=== PATIENT | male | born 1990 | race Caucasian/White ===

== ENCOUNTER 2017-06-09 04:10 | Emergency (ER) | payer MEDICAID, OTHER ==
[~2017-06-09] VITALS: Ht 185.4 cm; Wt 72.6 kg
[2017-06-09] MEDS ORDERED: SODIUM CHLORIDE 0.9% 1,000 ML IV ONE (05:00)
[2017-06-09] MEDS ORDERED: ONDANSETRON HCL 4 MG/2 ML VIAL IV ONE (05:00)
[2017-06-09 05:27] VITALS: BP 134/79
== END 2017-06-09 07:41 | disposition left against medical advice (07) ==
LOC: ER 04:10
DX: S09.8XXA Other specified injuries of head, initial encounter (principal); R11.0 Nausea; W22.8XXA Striking against or struck by other objects, initial encounter; Y93.89 Activity, other specified; Y92.89 Other specified places as the place of occurrence of the external cause; Y99.2 Volunteer activity
CPT/HCPCS: 70450; J7030

== ENCOUNTER → 2018-01-10 | Outpatient (CLI) | payer OTHER | END | disposition home or self-care (01) | LOC: LAB 15:24 | PROVIDERS: ATTEND Preventive Medicine Preventive Medicine/Occupational Environmental Medicine | DX: Z02.1 Encounter for pre-employment examination (principal) | CPT/HCPCS: 36415; 86706; 86735; 86762; 86765; 86787 ==

== ENCOUNTER 2019-02-06 20:24 | Inpatient (IN) | payer BC, OTHER ==
[~2019-02-06] VITALS: Ht 177.8 cm; Wt 74.0 kg
[2019-02-06] MEDS ORDERED: SODIUM CHLORIDE 0.9% 1,000 ML IV ONE (20:45)
[2019-02-06 21:21] LABS: Basophils # (auto) 0 uL; Eosinophils # (auto) 0 uL; Hematocrit 55.8 % (41.0-53.0); Hemoglobin 18.6 g/dL (13.5-17.5); Lymphocytes # (auto) 0.4 uL; Mean Corpuscular Hgb Conc. 33.4 g/dL (32.0-36.0)
[2019-02-06 21:22] LABS: Lymphocytes % (auto) 1.6 % (10.0-50.0); Mean Corpuscular Hemoglobin 33.7 pg (28.0-32.0); Mean Corpuscular Volume 100.9 fL (80.0-100.0); Monocytes # (auto) 1.7 uL; Monocytes % (auto) 6.8 % (0.0-12.0); Neutrophils # (auto) 23.1 uL; Neutrophils % (auto) 91.6 % (37.0-80.0); Platelet Count (auto) 204 10^3/uL (140-450); Red Blood Cells 5.53 10^6/uL (4.5-5.90); Red Cell Distribution Width 13.1 % (11.8-14.3); White Blood Cell 25.2 10^3/uL (4.4-10.8)
[2019-02-06 21:29] LABS: Salicylate < 1.7 mg/dL (2.8-20.0)
[2019-02-06 21:31] LABS: Albumin 4.7 g/dL (3.4-5.0); Calcium 8.6 mg/dL (8.5-10.1); Magnesium 2.6 mg/dL (1.6-2.6); Potassium 4.2 mmol/L (3.5-5.1)
[2019-02-06 21:33] LABS: Acetaminophen < 2.0 ug/mL (10-30)
[2019-02-06 21:36] LABS: BUN/Creatinine Ratio 7.2; Bilirubin, Total 2.4 mg/dL (0.2-1.0); Total Protein 8.5 g/dL (6.4-8.2)
[2019-02-06] MEDS ORDERED: SOD CHL 0.45% 1,000 ML IV ONE (23:30)
[2019-02-07 00:19] LABS: Amphetamine Screen, Urine NEGATIVE (NEGATIVE); Barbiturate Scree,Urine NEGATIVE (NEGATIVE); Benzodiazephine Screen, Urine NEGATIVE (NEGATIVE); Cannabinoid Screen, Urine NEGATIVE (NEGATIVE); Cocaine Screen, Urine NEGATIVE (NEGATIVE); Opiate Scree,Urine NEGATIVE (NEGATIVE); Phencyclidine Screen, Urine NEGATIVE (NEGATIVE)
[2019-02-07 00:27] LABS: Lactic Acid w/Reflex 7.8 mmol/L (0.4-2.0)
[2019-02-07 00:44] LABS: Urine Bacteria FEW /hpf (None Seen); Urine Blood TRACE /uL (Negative); Urine Hyaline Cast FEW /lpf (0 - 2); Urine Mucus FEW (None Seen); Urine Specific Gravity 1.008 (1.001-1.035); Urine WBC 1 /hpf (0 - 3)
[2019-02-07] MEDS ORDERED: cefTRIAXone 1GM/50ML D5W 50 ML IV ONE (02:00)
[2019-02-07] MEDS ORDERED: FOLIC ACID 1 MG, MULTIPLE VITAMIN 10 ML, THIAMINE INJ 100 MG in D5W/SOD CHL 0.45% 1,000 ML INJ ONE (02:00)
[2019-02-07 02:06] LABS: Lactic Acid w/Reflex 6.2 mmol/L (0.4-2.0)
[2019-02-07 02:51] LABS: BUN/Creatinine Ratio 9.8; Calcium 8.1 mg/dL (8.5-10.1); Potassium 4.4 mmol/L (3.5-5.1)
[2019-02-07] MEDS ORDERED: MORPHINE SULF INJ 2 MG/ML SYRINGE 1ML IV PRN (03:00)
[2019-02-07] MEDS ORDERED: ONDANSETRON HCL 4 MG/2 ML VIAL IV PRN ×2 (03:00→03:45)
[2019-02-07] MEDS ORDERED: KETOROLAC TROMETH 30 MG/ML 1ML VIAL IV ONE ×2 (03:00→04:00)
[2019-02-07] MEDS ORDERED: PANTOPRAZOLE 40 MG TAB PO ONE (03:45)
[2019-02-07] MEDS ORDERED: SODIUM CHLORIDE 0.9% 1,000 ML IV ONE ×2 (03:45→04:00)
[2019-02-07] MEDS ORDERED: TEMAZEPAM 15 MG CAP PO PRN (03:45)
[2019-02-07] MEDS ORDERED: SODIUM CHLORIDE 0.9% 1,000 ML IV SCH ×2 (03:45→15:44)
[2019-02-07] MEDS ORDERED: LORazepam 0.5 MG TAB PO ONE (04:00)
[2019-02-07] MEDS ORDERED: D5W/SOD CHLO 0.9% 1,000 ML IV SCH (04:00)
[2019-02-07] MEDS ORDERED: ATORVASTATIN 20 MG TAB PO ONE (04:00)
[2019-02-07 04:42] LABS: INR 0.98 (0.9-1.15); Partial Thromboplastin Time 26.2 sec (23.64-32.05)
[2019-02-07] MEDS ORDERED: NAPROXEN 500 MG TAB PO SCH ×2 (06:00→14:00)
[2019-02-07] MEDS: LORazepam 0.5 MG TAB PO PRN ×2 (08:37→21:46)
[2019-02-07] MEDS: NITROGLYCERIN 0.4 MG SL TAB SL PRN ×3 (08:38→10:06)
[2019-02-07] MEDS ORDERED: PANTOPRAZOLE 40 MG TAB PO SCH (10:00)
[2019-02-07] MEDS ORDERED: PANTOPRAZOLE 40 MG/10 ML VIAL INJ IV SCH (10:00)
[2019-02-07 10:18] LABS: Basophils # (auto) 0 uL; Eosinophils # (auto) 0 uL; Hemoglobin 15.4 g/dL (13.5-17.5); Monocytes # (auto) 1.1 uL; Platelet Count (auto) 123 10^3/uL (140-450)
[2019-02-07 10:20] LABS: Basophils % (auto) 0.2 % (0.0-2.0); Hematocrit 43.6 % (41.0-53.0); Lymphocytes % (auto) 8.9 % (10.0-50.0); Mean Corpuscular Hgb Conc. 35.3 g/dL (32.0-36.0); Mean Corpuscular Volume 96.4 fL (80.0-100.0); Neutrophils # (auto) 9.3 uL; Neutrophils % (auto) 80.9 % (37.0-80.0); Nucleated Red Blood Cells % 0.1 %; Red Blood Cells 4.53 10^6/uL (4.5-5.90); Red Cell Distribution Width 12.3 % (11.8-14.3); White Blood Cell 11.4 10^3/uL (4.4-10.8)
[2019-02-07] MEDS: SODIUM BICARBONATE 50ML VIAL 75 ML in D5W 5% 1,000 ML IV SCH ×2 (10:49→18:36)
[2019-02-07] MEDS: ASPirin 81 mg TAB PO SCH (11:49)
[2019-02-07] MEDS ORDERED: FOLIC ACID 1 MG, MULTIPLE VITAMIN 10 ML, THIAMINE INJ 100 MG in D5W/SOD CHL 0.45% 1,000 ML INJ SCH (12:00)
[2019-02-07] MEDS: chlordiazePOXIDE HCL 25 MG CAP PO PRN ×2 (14:03→23:26)
[2019-02-07] MEDS: CLINDAMYCIN 600MG IV 50 ML IV SCH ×2 (14:04→22:31)
[2019-02-07] MEDS ORDERED: METOPROLOL TARTRATE 25 MG TAB PO ONE (14:15)
[2019-02-07 15:34] LABS: Protein, Urine 60.7 mg/dL (0.0-11.9)
[2019-02-07] MEDS ORDERED: cefTRIAXone 1GM/50ML D5W 50 ML IV SCH (21:00)
[2019-02-07] MEDS ORDERED: ATORVASTATIN 20 MG TAB PO SCH (22:00)
[2019-02-07] MEDS: METOPROLOL TARTRATE 25 MG TAB PO SCH (22:31)
[2019-02-07] MEDS: PANTOPRAZOLE 40 MG TAB PO SCH (22:32)
[2019-02-08 01:00] VITALS: BP 126/79
--- NOTE | 2019-02-08 01:00 | NUR ---
Admit to [facility] SHAYLEE LOPEZ admitted to [facility] via gurney on phototypesetting equipment monitor. Patient transferred to bed, connected to unit monitoring and oxygen, and weighed by bedscale. Patient oriented to Lolis Dubois, primary RN, unit, room, bed, and unit policies regarding patient care and visiting hours. All questions and concerns addressed, patient verbalized understanding. Pt very embarrassed over being put in green gown in ER. Seems very upset and suspicious with feelings of being judged by staff. Assured pt that he was not being judged. Pt does not want visitors except [facility] contact centre supervisor Mikie. No signs of pain at this time. Blisters noted on right calf and right elbow. Will continue to monitor.
--- NOTE | 2019-02-08 01:00 | NUR ---
In pt's belongings was a bottle of Vodka that was half full. Bottle was given to RN before belongings were taken into room. Lolis AGUILAR poured out bottle with Fei AGUILAR as a witness.
[2019-02-08] MEDS: SODIUM BICARBONATE 50ML VIAL 75 ML in D5W 5% 1,000 ML IV SCH (03:12)
[2019-02-08 03:58] VITALS: BP 135/81
[2019-02-08 05:48] LABS: Basophils # (auto) 0 uL; Eosinophils # (auto) 0 uL; Lymphocytes # (auto) 1.2 uL; Monocytes # (auto) 0.6 uL; White Blood Cell 6.9 10^3/uL (4.4-10.8)
[2019-02-08 05:52] LABS: Basophils % (auto) 0.2 % (0.0-2.0); Eosinophils % (auto) 0.2 % (0.0-7.0); Hematocrit 42.3 % (41.0-53.0); Lymphocytes % (auto) 17.5 % (10.0-50.0); Mean Corpuscular Hemoglobin 34.5 pg (28.0-32.0); Mean Corpuscular Hgb Conc. 35.5 g/dL (32.0-36.0); Mean Corpuscular Volume 97.1 fL (80.0-100.0); Monocytes % (auto) 8.8 % (0.0-12.0); Neutrophils # (auto) 5.1 uL; Neutrophils % (auto) 73.3 % (37.0-80.0); Platelet Count (auto) 93 10^3/uL (140-450); Red Blood Cells 4.36 10^6/uL (4.5-5.90); Red Cell Distribution Width 12.4 % (11.8-14.3)
--- NOTE | 2019-02-08 06:00 | NUR ---
Pt stable. Tolerating clear liquids well. Photos taken of blisters. Security informed of the only visitors allowed to see pt.
[2019-02-08 06:03] LABS: Albumin 3.5 g/dL (3.4-5.0); BUN/Creatinine Ratio 12.2; Calcium 8.6 mg/dL (8.5-10.1); Phosphorus 1.2 mg/dL (2.5-4.90); Potassium 3.5 mmol/L (3.5-5.1)
[2019-02-08 06:08] LABS: Bilirubin, Total 4.6 mg/dL (0.2-1.0); Total Protein 6.2 g/dL (6.4-8.2)
[2019-02-08] MEDS: CLINDAMYCIN 600MG IV 50 ML IV SCH ×3 (07:03→21:47)
[2019-02-08 07:40] VITALS: BP 118/51
--- NOTE | 2019-02-08 08:00 | NUR ---
Dr Timmons at bedside, updated on patient's status. Will carry out new orders.
[2019-02-08] MEDS: chlordiazePOXIDE HCL 25 MG CAP PO PRN (08:13)
[2019-02-08] MEDS ORDERED: SODIUM CHLORIDE 0.9% 1,000 ML IV ONE (08:30)
--- NOTE | 2019-02-08 08:30 | NUR ---
Opening Shift Note Assumed care of patient, awake and alert. No S/S of distress/SOB or pain. See interventions for complete assessment. Bed locked on lowest position, side rails up x2, call cardenas within reach, instructed on POC and to call for assist PRN, will continue to monitor for changes Q1hr and PRN.
--- NOTE | 2019-02-08 08:33 | NUR ---
Pt remained stable during shift. States he was unable to sleep in ER. Restoril given. This morning pt stated he slept "like a rock" and he does look rested this morning. Pt did state he had a headache with CP and also felt "weird" and like "shaking and something is off." Librium given this morning and when medication was explained to him and what it was for, pt stated that he "heard enough from the people in ER and I don't need to hear it here too." RN explained to pt that she was not judging and that he could do what he wanted but that she was just educating pt on the medication and what it was for. Pt then said ok and thank you. When RN asked pt what medications he took at home, pt seemed defensive, RN clarified questioning to let him know that information was important so if he was on any medication that we would either continue or make sure nothing he was going to be given in hospital or continue out of hospital was not going to adversly interact with meds. Pt then calmed down and stated he only took a supplement called StoneX to get rid of gull stones. Pt stable, Dr. Bhagat visited pt this am. Report given, care endorsed.
[2019-02-08] MEDS: ASPirin 81 mg TAB PO SCH (09:54)
[2019-02-08] MEDS: PANTOPRAZOLE 40 MG TAB PO SCH ×2 (09:54→21:49)
[2019-02-08] MEDS: METOPROLOL TARTRATE 25 MG TAB PO SCH ×2 (09:55→21:48)
[2019-02-08] MEDS: THIAMINE HCL 100 MG TAB PO SCH (09:55)
--- NOTE | 2019-02-08 11:30 | NUR ---
Dr Holloway at bedside, patient seen and examined. Will carry out new orders.
[2019-02-08 11:35] VITALS: BP 116/67
--- NOTE | 2019-02-08 12:00 | NUR ---
Stool sample sent to lab
[2019-02-08] MEDS: FOLIC ACID 1 MG, MULTIPLE VITAMIN 10 ML, MAGNESIUM SULF SDV 50% 8 MEQ, THIAMINE INJ 100... INJ SCH ×5 (12:13)
--- NOTE | 2019-02-08 14:20 | NUR ---
WOUND CARE NOTE: Wound care consult received from nursing. Patient is a 28yo male admitted for elevated troponins, rule out STEMI, acute renal failure and possible rhabdomyolysis. Patient's only admitted history is gallstones. Patient is alert and has been complaining of chest pain. Bedside RN, Aurora aware of pain. Last Bryson score is 20. Per patient and chart, patient went for a hike, fell and woke up confused around 12 hrs later, was found with blisters from some type of insect bites. Patient has stated that he feels 'weird' and has been hallucinating. Patient noted to have intact blister to right upper arm measures 1x1cm and multiple intact blisters to right inner covering an area measuring 10x7cm. Patient also with dry scabbed abraison to right knee. RECOMMENDATIONS: Nursing to cleanse blisters with mild soap and water, pat dry, may leave open to air or cover with foam when they start draining, change PRN; wound care team to follow.
--- NOTE | 2019-02-08 14:23 | NUR ---
port crane operator Sandie at bedside. Patient's blisters seen and examined.
[2019-02-08 15:40] VITALS: BP 118/84
--- NOTE | 2019-02-08 16:33 | NUR ---
Dr Dee at bedside, updated on patient's status. Patient seen and examined, will carry out new orders.
--- NOTE | 2019-02-08 17:00 | NUR ---
Patient complaining of RT calf blister pain, paged Dr Coppola. Awaiting call back.
--- NOTE | 2019-02-08 17:10 | NUR ---
[facility] pt transferred to floor SHAYLEE LOPEZ transfered to Tele floor via hospital bed on elevator inspector. All patient medications and personal belongings including cellphone and solar pool heating installer transferred with patient to receiving floor. Patient care transfered to Isi AGUILAR.
--- NOTE | 2019-02-08 17:34 | NUR ---
PT TRANSFERRED TO UNIT VIA BED FROM [facility]. PT A AND 0 X 4. PT ORIENTED TO UNIT AND CALL LIGHT. PT ABLE TO AMBULATE TO RESTROOM. BLISTER AND SCRATCH NOTED ON RIGHT ARM. MULTIPLE BLISTERS ON RIGHT LEG. PT ENCOURAGED TO USE CALL LIGHT PRN. VITALS: 98.0, HR 79, 02 96, RR 12, 134/79, 7/10 PAIN IN RIGHT ARM AND LEG. PT ALSO REPORTS,' HEART PAIN FOR THE LAST NINE DAYS." [facility] NURSE REPORTS SHE CALLED DR ALICIA FOR PAIN MEDICATION AND WILL INPUT HIS ORDERS WHEN HE CALLS.
[2019-02-08 22:01] VITALS: BP 132/83
[2019-02-09] MEDS: LORazepam 0.5 MG TAB PO PRN ×2 (03:51→17:03)
[2019-02-09 04:37] VITALS: BP 140/91
[2019-02-09 05:34] LABS: Albumin 3.1 g/dL (3.4-5.0); BUN/Creatinine Ratio 7.4; Calcium 8.4 mg/dL (8.5-10.1); Potassium 3.4 mmol/L (3.5-5.1)
[2019-02-09 05:36] LABS: Bilirubin, Total 3.8 mg/dL (0.2-1.0); Total Protein 5.7 g/dL (6.4-8.2)
[2019-02-09] MEDS: CLINDAMYCIN 600MG IV 50 ML IV SCH ×3 (06:31→22:25)
[2019-02-09 08:00] VITALS: BP 125/80
[2019-02-09 09:00] VITALS: BP 135/66
[2019-02-09] MEDS ORDERED: KETOROLAC TROMETH 30 MG/ML 1ML VIAL IV ONE (10:15)
[2019-02-09] MEDS: ASPirin 81 mg TAB PO SCH (10:25)
[2019-02-09] MEDS: THIAMINE HCL 100 MG TAB PO SCH (10:25)
[2019-02-09] MEDS: METOPROLOL TARTRATE 25 MG TAB PO SCH ×2 (10:30→22:28)
[2019-02-09] MEDS: PANTOPRAZOLE 40 MG TAB PO SCH ×2 (10:31→22:26)
--- NOTE | 2019-02-09 11:08 | NUR ---
Nutrition Assessment Notes please see attached link for complete assessment Est. Needs BW 81 [id number] kcal (25-30 kcal/kgBW), 81-89 gms pro (1.0-1.1 gms/kgBW). Will continue to monitor pertinent labs and reassess nutrient need prn. Addendum: 02/09/19 at [address] Amended: Links added.
--- NOTE | 2019-02-09 11:30 | NUR ---
MICROBIOLOGY NOTIFIED ME THAT THE PATIENT IS POSITIVE FOR C-DIFF. PATIENT INFORMED AND EDUCATED. ORDERS OBTAINED FROM DR. LESLIE FOR ANTIBIOTIC THERAPY.
[2019-02-09 12:01] LABS: Lactic Acid w/Reflex 2.1 mmol/L (0.4-2.0)
[2019-02-09 13:00] VITALS: BP 106/54
--- NOTE | 2019-02-09 13:34 | NUR ---
BLISTER OPENED ON RIGHT LOWER EXTREMITY. CULTURE SWABBED AND SENT TO THE LAB. DRESSING APPLIED TO RIGHT LOWER EXTREMITY.
[2019-02-09] MEDS: FOLIC ACID 1 MG, MULTIPLE VITAMIN 10 ML, MAGNESIUM SULF SDV 50% 8 MEQ, THIAMINE INJ 100... INJ SCH ×5 (13:36)
[2019-02-09] MEDS: VANCOMYCIN HCL 125MG/5ML ORAL SOL PO SCH ×3 (13:36→22:39)
[2019-02-09] MEDS: chlordiazePOXIDE HCL 25 MG CAP PO PRN (14:09)
[2019-02-09 17:00] VITALS: BP 126/80
[2019-02-09 22:00] VITALS: BP 130/67
--- NOTE | 2019-02-10 | NUR ---
PT instructed about NPO IS ANXIOUS ABOUT WHAT TIME WILL BE THE HEART CATH ENCOURAGE TO RELAX ATIVAN 0.5MG GIVEN IV 0.9 NS STARTED IN RT AC . STATES HE WILL GO ASLEEP CONTACT ISOLATIO AND NPO MAINTAINED.
[2019-02-10] MEDS: LORazepam 0.5 MG TAB PO PRN (00:13)
[2019-02-10 05:00] VITALS: BP 122/78
[2019-02-10 05:03] LABS: Basophils # (auto) 0 uL; Basophils % (auto) 0.3 % (0.0-2.0); Eosinophils # (auto) 0.1 uL; Eosinophils % (auto) 2.1 % (0.0-7.0); Hematocrit 39.6 % (41.0-53.0); Hemoglobin 13.8 g/dL (13.5-17.5); Lymphocytes # (auto) 0.9 uL; Lymphocytes % (auto) 18.8 % (10.0-50.0); Mean Corpuscular Hemoglobin 34.3 pg (28.0-32.0); Mean Corpuscular Hgb Conc. 34.8 g/dL (32.0-36.0); Mean Corpuscular Volume 98.5 fL (80.0-100.0); Monocytes # (auto) 0.3 uL; Monocytes % (auto) 6.9 % (0.0-12.0); Neutrophils # (auto) 3.5 uL; Neutrophils % (auto) 71.9 % (37.0-80.0); Platelet Count (auto) 75 10^3/uL (140-450); Red Blood Cells 4.02 10^6/uL (4.5-5.90); Red Cell Distribution Width 12.4 % (11.8-14.3); White Blood Cell 4.8 10^3/uL (4.4-10.8)
[2019-02-10 05:32] LABS: INR 1.05 (0.9-1.15)
[2019-02-10 05:45] LABS: Alanine Aminotransferase 147 U/L (16-61); Alkaline Phosphatase 48 U/L (45-117); Anion Gap 8 (5-15); Aspartate Aminotransferase 184 U/L (15-37); BUN/Creatinine Ratio 5.1; Bilirubin, Total 2.8 mg/dL (0.2-1.0); Blood Urea Nitrogen 4 mg/dL (7-18); Calcium 8.3 mg/dL (8.5-10.1); Carbon Dioxide 25 mmol/L (21-32); Chloride 111 mmol/L (98-107); GFR African American 155 mL/min; GFR Non-African American 128 mL/min; Glucose 83 mg/dL (74-106); Phosphorus 3.9 mg/dL (2.5-4.90); Potassium 3.4 mmol/L (3.5-5.1); Sodium 144 mmol/L (136-145)
[2019-02-10 05:46] LABS: Albumin 3.1 g/dL (3.4-5.0); Magnesium 2.2 mg/dL (1.6-2.6); Total Protein 5.6 g/dL (6.4-8.2)
[2019-02-10] MEDS: CLINDAMYCIN 600MG IV 50 ML IV SCH (06:17)
[2019-02-10] MEDS: VANCOMYCIN HCL 125MG/5ML ORAL SOL PO SCH ×4 (06:18→22:36)
[2019-02-10] MEDS ORDERED: IOHEXOL 350 MG/ML 100ML IJ ONE ×2 (07:29→08:05)
[2019-02-10] MEDS ORDERED: LIDOCAINE 2%HCL (LOCAL ANESTH.) INJ 20ML MDV ONE (07:29)
--- NOTE | 2019-02-10 07:30 | NUR ---
Opening Shift Note Assumed care of patient, awake and alert, oriented x4 and verbally responsive. Respiratory even and unlabored. No S/S of distress/SOB or pain. Skin is warm and dry to touch , continue NPO for a LHC, patient tolerated well. Instructed on POC and to call for assist PRN, will continue to monitor for changes Q1hr and PRN.
--- NOTE | 2019-02-10 07:35 | NUR ---
Patient off unit to laboratory engineer.
[2019-02-10] MEDS ORDERED: ANGIOMAX 250 MG VIAL IV ONE (08:03)
[2019-02-10] MEDS ORDERED: fentaNYL CITRATE 100 MCG/2 ML VL ONE (08:03)
[2019-02-10] MEDS ORDERED: MIDAZOLAM HCL 1MG/1ML-2 ML VIAL ONE (08:04)
[2019-02-10] MEDS ORDERED: SODIUM CHL 0.9% 0 ML ONE (08:04)
[2019-02-10] MEDS ORDERED: ATROPINE SULFATE 1 MG/1 ML VIAL ONE (08:27)
--- NOTE | 2019-02-10 09:30 | NUR ---
Patient came back from Ticketing Agent, no respiratory distress noted.
[2019-02-10] MEDS: ASPirin 81 mg TAB PO SCH ×2 (09:55→10:12)
[2019-02-10] MEDS: PANTOPRAZOLE 40 MG TAB PO SCH (09:55)
[2019-02-10] MEDS: METOPROLOL TARTRATE 25 MG TAB PO SCH (09:55)
[2019-02-10] MEDS: THIAMINE HCL 100 MG TAB PO SCH (09:56)
--- NOTE | 2019-02-10 10:11 | NUR ---
Per Pollo DUCT LAYER HELPER, plt 75 ok to give Aspirin.
[2019-02-10] MEDS ORDERED: POTASSIUM CHL 20 Meq TABLET PO ONE (10:45)
[2019-02-10] MEDS ORDERED: MULTIPLE VITAMIN TAB PO ONE (10:45)
[2019-02-10] MEDS: D5W/SOD CHL 0.45%/KCL 20MEQ 1,000 ML IV SCH (11:27)
[2019-02-10] MEDS: FOLIC ACID 1 MG, MULTIPLE VITAMIN 10 ML, MAGNESIUM SULF SDV 50% 8 MEQ, THIAMINE INJ 100... INJ SCH ×5 (11:43)
--- NOTE | 2019-02-10 12:00 | NUR ---
WOUND CARE NOTE: IN TO SEE PATIENT PER DR. TRENT REQUEST. PATIENT IS ANXIOUS ABOUT HIS BLISTERS TO THE RIGHT ARM/LEG. PATIENT CAME IN TO CONTACT WITH MULTIPLE INSECTS AND PLANTS PRIOR TO ADMISSION, AND HAS SERUM BLISTERS NOTED TO RIGHT ARM AND THIGH. NO SIGNS OF INFECTION NOTED, ALL BUT ONE BLISTER REMAINS INTACT, SERUM FILLED. THERE AREA NO NECROTIC AREAS, NO ERYTHEMA. ADVISED PATIENT THAT BLISTERS ARE PROBABLY CAUSED FROM CONTACT WITH A PLANT, INSECT, OR OTHER SUBSTANCE, WOUNDS DO NOT APPEAR TO BE WORSENING. WOUND/DRESSING CARE EDUCATION GIVEN AT THIS TIME TO PATIENT, PATIENT VERBALIZED UNDERSTANDING. PATIENT MUCH LESS ANXIOUS ABOUT HIS SKIN INTEGRITY. WOUND CARE TEAM WILL CONTINUE TO MONITOR.
[2019-02-10 13:25] LABS: Hepatitis A Ab IgM Negative
[2019-02-10 13:26] LABS: Hepatitis B Core IgM Negative; Hepatitis B Surface Antigen Negative (Negative); Hepatitis C Antibody Negative (Negative)
--- NOTE | 2019-02-10 14:54 | NUR ---
Dr. Holloway at bedside discuss with patient for EGD, patient agrees to get it done.
[2019-02-10 17:00] VITALS: BP 135/94
[2019-02-10] MEDS: traMADol HCL 50 MG TAB PO PRN (17:30)
--- NOTE | 2019-02-10 19:30 | NUR ---
Opening Shift Note Assumed care of patient, awake, alert and oriented x 4. No S/S of distress/SOB or pain. Contact precautions in place. On room air and ambulatory. Bed in lowest locked position, side rails up x 2, call light within reach. Instructed on POC and to call for assist PRN, will continue to monitor for changes Q1hr and PRN.
[2019-02-10 20:00] VITALS: BP 136/93
[2019-02-10 21:48] VITALS: BP 136/93
[2019-02-11] MEDS: D5W/SOD CHL 0.45%/KCL 20MEQ 1,000 ML IV SCH ×2 (00:43→15:36)
[2019-02-11] MEDS: traMADol HCL 50 MG TAB PO PRN ×2 (00:44→22:17)
[2019-02-11 05:40] VITALS: BP 135/79
[2019-02-11] MEDS: VANCOMYCIN HCL 125MG/5ML ORAL SOL PO SCH ×4 (05:52→22:16)
[2019-02-11 06:28] LABS: Basophils # (auto) 0 uL; Basophils % (auto) 0.2 % (0.0-2.0); Eosinophils # (auto) 0.1 uL; Eosinophils % (auto) 1.9 % (0.0-7.0); Hematocrit 39.3 % (41.0-53.0); Hemoglobin 13.9 g/dL (13.5-17.5); Lymphocytes # (auto) 1.1 uL; Lymphocytes % (auto) 17.5 % (10.0-50.0); Mean Corpuscular Hemoglobin 34.8 pg (28.0-32.0); Mean Corpuscular Hgb Conc. 35.4 g/dL (32.0-36.0); Mean Corpuscular Volume 98.4 fL (80.0-100.0); Monocytes # (auto) 0.6 uL; Monocytes % (auto) 9.9 % (0.0-12.0); Neutrophils # (auto) 4.3 uL; Neutrophils % (auto) 70.5 % (37.0-80.0); Platelet Count (auto) 97 10^3/uL (140-450); Red Blood Cells 3.99 10^6/uL (4.5-5.90); Red Cell Distribution Width 12.5 % (11.8-14.3); White Blood Cell 6.1 10^3/uL (4.4-10.8)
[2019-02-11 06:57] LABS: Albumin 3.2 g/dL (3.4-5.0); Calcium 8.3 mg/dL (8.5-10.1)
[2019-02-11 07:00] LABS: BUN/Creatinine Ratio 3.7
[2019-02-11 07:03] LABS: Bilirubin, Total 1.7 mg/dL (0.2-1.0); Total Protein 5.9 g/dL (6.4-8.2)
[2019-02-11 09:00] VITALS: BP 119/70
--- NOTE | 2019-02-11 09:30 | NUR ---
Patient off unit to OR.
[2019-02-11] MEDS ORDERED: MIDAZOLAM HCL 1MG/1ML-2 ML VIAL IV PRN (10:30)
[2019-02-11] MEDS ORDERED: ePHEDrine SULFATE 50 MG/ML AMP IV PRN (10:30)
[2019-02-11] MEDS ORDERED: KETOROLAC TROMETH 30 MG/ML 1ML VIAL IV ONE (10:30)
[2019-02-11] MEDS ORDERED: MORPHINE SULFATE 4 MG/ML SYR/VIAL IV PRN (10:30)
[2019-02-11] MEDS ORDERED: ONDANSETRON HCL 4 MG/2 ML VIAL IV PRN (10:30)
[2019-02-11] MEDS ORDERED: LABETALOL HCL 5 MG/ML 4ML SYRINGE IV PRN (10:30)
[2019-02-11] MEDS ORDERED: fentaNYL CITRATE 100 MCG/2 ML VL ONE (10:36)
[2019-02-11] MEDS ORDERED: MIDAZOLAM HCL 1MG/1ML-2 ML VIAL ONE (10:36)
[2019-02-11] MEDS ORDERED: PROPOFOL 10 MG/ML 20 ML IV ONE (10:44)
[2019-02-11] MEDS ORDERED: DexAMETHasone SOD PHOS 10MG/1ML VIAL INJ ONE (10:44)
[2019-02-11] MEDS ORDERED: PANTOPRAZOLE 40 MG TAB PO SCH (10:45)
--- NOTE | 2019-02-11 11:15 | NUR ---
Patient back to the floor, no respiratory distress noted.
[2019-02-11] MEDS: MULTIPLE VITAMIN TAB PO SCH (11:31)
[2019-02-11] MEDS: PANTOPRAZOLE 40 MG TAB PO SCH (11:31)
[2019-02-11] MEDS: THIAMINE HCL 100 MG TAB PO SCH (11:31)
[2019-02-11] MEDS: LEVOFLOXACIN 500 MG TAB PO SCH (11:31)
[2019-02-11] MEDS: FLORASTOR (S. BOULARDII) 250 MG CAP PO SCH (11:31)
--- NOTE | 2019-02-11 11:45 | NUR ---
Wound dressing changed to left leg and left FA.
[2019-02-11] MEDS: FOLIC ACID 1 MG, MULTIPLE VITAMIN 10 ML, MAGNESIUM SULF SDV 50% 8 MEQ, THIAMINE INJ 100... INJ SCH ×5 (12:05)
--- NOTE | 2019-02-11 12:10 | NUR ---
Nutrition Follow-up Notes Wt.: 73.3 kg as of yesterday. Pt's NPO, off the floor for a procedure during rounds this morning. Noted pt's s/p EGD, to resume on Regular diet today. Est. Needs BW 81 [id number] kcal (25-30 kcal/kgBW), 81-89 gms pro (1.0-1.1 gms/kgBW). Will continue to monitor pertinent labs and reassess nutrient need prn. Labs: Cl 110 H, BUN 3 L, Ca 8.3 L, Tot carlos manuel 1.7 H, AST/ALT 156/164 H, Tpro 5.9 L, Alb 3.2 L Skin: Bryson scale 23, low risk, pt's right leg blisters per documentation analyst. GI: Pt had 1 BM yesterday per documentation analyst. PES: Resolved: Increased nutrient needs r/t current/chronic medical condition aeb on CLD, with inadequate PO Altered nutrition related lab values r/t current/chronic medical condition aeb mild hypoalb, hypocalcemia, elev LFT hyperbil Will continue to monitor PO intake, skin status, pertinent labs and weight trend. F/u in 3 to 5 days. Rec.: 1.) If LFTs remain elev. consider Low Fat diet. 2.) Continue close supervision during meals. 2.) Refer pt to RD for further nutrition education and weight monitoring upon discharge. 3.) Continue current plan of care.
[2019-02-11 12:51] VITALS: BP 132/84
[2019-02-11 16:21] VITALS: BP 149/98
--- NOTE | 2019-02-11 19:30 | NUR ---
Opening Shift Note Assumed care of patient, alert and oriented x 4. On room air and ambulatory. No S/S of distress/SOB or pain. Contact isolation precautions in place. Bed in lowest locked position, side rails up x 2, call light within reach. Instructed on POC and to call for assist PRN, will continue to monitor for changes Q1hr and PRN.
[2019-02-11 20:00] VITALS: BP 144/87
[2019-02-11 22:00] VITALS: BP 144/87
[2019-02-12] MEDS: D5W/SOD CHL 0.45%/KCL 20MEQ 1,000 ML IV SCH (02:45)
[2019-02-12 05:00] VITALS: BP 135/61
[2019-02-12] MEDS: VANCOMYCIN HCL 125MG/5ML ORAL SOL PO SCH (05:39)
[2019-02-12 06:22] LABS: Basophils # (auto) 0 uL; Eosinophils # (auto) 0 uL; Hemoglobin 14.9 g/dL (13.5-17.5); Lymphocytes # (auto) 1.1 uL; Platelet Count (auto) 164 10^3/uL (140-450)
[2019-02-12 06:25] LABS: Basophils % (auto) 0.1 % (0.0-2.0); Eosinophils % (auto) 0.3 % (0.0-7.0); Hematocrit 41.6 % (41.0-53.0); Lymphocytes % (auto) 12.5 % (10.0-50.0); Mean Corpuscular Hemoglobin 34.9 pg (28.0-32.0); Mean Corpuscular Hgb Conc. 35.8 g/dL (32.0-36.0); Mean Corpuscular Volume 97.6 fL (80.0-100.0); Monocytes % (auto) 11.6 % (0.0-12.0); Neutrophils # (auto) 6.8 uL; Neutrophils % (auto) 75.5 % (37.0-80.0); Red Blood Cells 4.26 10^6/uL (4.5-5.90); Red Cell Distribution Width 12.8 % (11.8-14.3)
[2019-02-12 06:51] LABS: Albumin 3.5 g/dL (3.4-5.0); Potassium 4.1 mmol/L (3.5-5.1)
[2019-02-12 06:54] LABS: BUN/Creatinine Ratio 6.3; Bilirubin, Total 1.7 mg/dL (0.2-1.0); Total Protein 6.5 g/dL (6.4-8.2)
--- NOTE | 2019-02-12 07:30 | NUR ---
OPENING SHIFT NOTE: Received report from NOC RNAna María. Assumed care of patient. Patient resting in bed, no complaints of pain. Patient asking about discharge plan. Explained will know more when hospitalist start their rounds later this morning. Bed in lowest position, rails x2 up and call light within reach. Updated on plan of care. Will continue monitor.
[2019-02-12 08:45] VITALS: BP 137/87
[2019-02-12] MEDS: LEVOFLOXACIN 500 MG TAB PO SCH (10:02)
[2019-02-12] MEDS: FLORASTOR (S. BOULARDII) 250 MG CAP PO SCH (10:02)
[2019-02-12] MEDS: PANTOPRAZOLE 40 MG TAB PO SCH (10:03)
[2019-02-12] MEDS: MULTIPLE VITAMIN TAB PO SCH (10:03)
[2019-02-12] MEDS: THIAMINE HCL 100 MG TAB PO SCH (10:03)
[2019-02-12 10:31] VITALS: BP 137/93
--- NOTE | 2019-02-12 11:15 | NUR ---
DISCHARGE: Discharge instructions given as ordered. Encourage to follow up with PMD as instructed. All questions and concerns addressed. Patient verbalized understanding. Medication reconciliation form completed and copy given to patient. IVs removed with catheter intact, pressure dressing applied. Patient walked self to vehicle via wheelchair with all personal belongings, accompanied by staff and friend. No distress noted at time of departure.
== END 2019-02-12 11:20 | disposition home or self-care (01) | DRG 280 ==
LOC: EDBD 20:24 → EEVIPCON 20:26 → ER 20:26 → TELE 20:27 → DOU IN ICU 02-08 01:25 → TELE-CENTR 02-08 17:08 → CENTRAL 02-10 12:30
PROVIDERS: ADMIT Nurse Practitioner; ATTEND Internal Medicine
PROC: 4A023N7 Measurement of Cardiac Sampling and Pressure, Left Heart, Percutaneous Approach (ICD-10-PCS; principal; 2019-02-10)
PROC: B2111ZZ Fluoroscopy of Multiple Coronary Arteries using Low Osmolar Contrast (ICD-10-PCS; 2019-02-10)
PROC: B2151ZZ Fluoroscopy of Left Heart using Low Osmolar Contrast (ICD-10-PCS; 2019-02-10)
PROC: 0DB68ZX Excision of Stomach, Via Natural or Artificial Opening Endoscopic, Diagnostic (ICD-10-PCS; 2019-02-11)
DX: I21.4 Non-ST elevation (NSTEMI) myocardial infarction (principal); G92 Toxic encephalopathy; K29.71 Gastritis, unspecified, with bleeding; I31.9 Disease of pericardium, unspecified; E87.0 Hyperosmolality and hypernatremia; N17.9 Acute kidney failure, unspecified; E87.2 Acidosis; A04.72 Enterocolitis due to Clostridium difficile, not specified as recurrent; K70.30 Alcoholic cirrhosis of liver without ascites; D72.829 Elevated white blood cell count, unspecified; E86.0 Dehydration; K72.90 Hepatic failure, unspecified without coma; K76.0 Fatty (change of) liver, not elsewhere classified; D69.6 Thrombocytopenia, unspecified; F10.229 Alcohol dependence with intoxication, unspecified; K70.10 Alcoholic hepatitis without ascites; S80.821A Blister (nonthermal), right lower leg, initial encounter; Z79.899 Other long term (current) drug therapy; Z87.01 Personal history of pneumonia (recurrent); X58.XXXA Exposure to other specified factors, initial encounter; Y93.89 Activity, other specified; Y92.89 Other specified places as the place of occurrence of the external cause; Y99.8 Other external cause status
CPT/HCPCS: 36415; 71045; 74176; 76775; 80048; 80053; 80074; 80307; 80320; 80329; 81001; 82140; 82270; 82550; 82553; 82570; 83605; 83735; 83874; 84100; 84156; 84300; 84439; 84443; 84484; 85025; 85610; 85730; 86850; 86900; 86901; 87040; 87081; 87205; 87493; 93005; 93306; 94761; 96361; 96365; 96367; 96375; C9113; G0378; J0461; J0696; J1100; J1885; J2250; J2704; J3490; J7042